=== PATIENT | male | born 1965 | race Caucasian/White ===

== ENCOUNTER 2018-04-11 16:57 | Observation (INO) | payer OTHER ==
[~2018-04-11] VITALS: Ht 188 cm; Wt 198.2 kg
[~2018-04-11 16:57] MED LIST: ALLOPURINOL300 MG PO; AMLODIPINE BESYL5 MG PO; ASPIR 8181 MG PO; FOLIC ACID1 MG PO; ISOSORBIDE MONO60 MG PO; LEVOTHYROXINE300 MCG PO; METOPROLOL SUCC25 MG PO; OMEPRAZOLE20 MG PO; VITAMIN D1000 UNI1 PO
[2018-04-11] MEDS ORDERED: ESOMEPRAZOLE MA40 MG PO (19:57)
[2018-04-11] MEDS ORDERED: METFORMIN HCL500 M1 PO (19:57)
[2018-04-11] MEDS ORDERED: LOSARTAN-HCTZ1 EAC1 PO (19:58)
[2018-04-11] MEDS ORDERED: LIOTHYRONINE SO5 MCG PO (19:59)
--- NOTE | 2018-04-11 21:57 | EKG ---
[facility] [address] [facility] [place] [address] Signed Sinus tachycardia Otherwise normal ECG No previous ECGs available Confirmed by SOURAV LYLE MD ([id number]) on 04/11/2018 9:57:15 PM Electronically Signed By: SOURAV LYLE MD 04/11/18 2157 PATIENT NAME: SUZANNE CAMPBELL Electrocardiogram DATE OF : 61 PHYSICIAN: SOURAV LYLE MD REPORT #: [id number] REPORT IS CONFIDENTIAL AND NOT TO BE RELEASED WITHOUT AUTHORIZATION
--- NOTE | 2018-04-12 00:56 | NUR ---
REPORT RECEIVED FROM SAPNA FOX. PT ARRIVED TO ROOM 129 VIA STRETCHER AT 2350. PT ABLE TO AMBULATE TO BED. ALERT/ORIENTED, DENIES PAIN. LUNGS CLEAR, RA. HR REGULAR. BOWEL TONES ACTIVE, ABDOMEN IS OBESE, SOFT, AND NON-TENDER. DENIES NAUSEA. SKIN APPEARS GROSSLY INTACT. PT REPORTS NUMBNESS IN BILATERAL HANDS AT BASELINE. IV SITES PATENT, IVF INFUSING WNL. PT UP TO BATHROOM WITH SBA TO VOID AND THEN RETURNED TO BED. R.T. NOW IN ROOM TO PLACE PT ON CPAP. PT HAS CALL LIGHT WITHIN REACH.
--- NOTE | 2018-04-12 02:05 | NUR ---
PT CALLED AND NEEDED TO USE BATHROOM. UP WITH SBA TO VOID AND THEN RETURNED TO BED. NOTICED ODOR OF YEAST, CHECKED UNDER PANNUS, SKIN APPEARS INTACT. USED BARRIER WIPES TO CLEAN FOLD BETWEEN GROIN AND LEGS. IT APPEARS THAT WHEN PT HAD DIARRHEA EARLIER IN THE DAY, THAT HE DID NOT GET CLEANED WELL. SKIN IN FOLDS APPEARS RED, NO OBVIOUS YEAST NOTED AT THIS TIME. PT NOW RESTING IN BED WITH CPAP ON. DENIES FURTHER REQUESTS AT THIS TIME, CALL LIGHT IS WITHIN REACH.
--- NOTE | 2018-04-12 02:05 | NUR ---
PT CALLED AND NEEDED TO USE BATHROOM. UP WITH SBA TO VOID AND THEN RETURNED TO BED. NOTICED ODOR OF YEAST, CHECKED UNDER PANNUS, SKIN APPEARS INTACT. USED BARRIER WIPES TO CLEAN FOLD BETWEEN GROIN AND LEGS, WIPED AWAY BROWN COLORED EXUDATE, FOLDS APPEAR RED, NO OBVIOUS YEAST NOTED AT THIS TIME. PT NOW RESTING WITH CPAP ON. DENIES FURTHER REQUESTS AT THIS TIME, CALL LIGHT IS WITHIN REACH.
--- NOTE | 2018-04-12 03:21 | NUR ---
PT CALLED AND NEEDED TO USE BATHROOM, UP WITH SBA, VOIDED AND THEN RETURNED TO BED. CPAP IN PLACE. CALL LIGHT WITHIN REACH. NO FURTHER REQUESTS AT THIS TIME.
--- NOTE | 2018-04-12 04:13 | NUR ---
ASSESSMENT COMPLETED. NO CHANGES FROM PREVIOUS ASSESSMENT. PT RESTING WITH CPAP IN PLACE. NO REQUESTS AT THIS TIME.
--- NOTE | 2018-04-12 05:01 | NUR ---
PT CALLED AND NEEDED TO USE BATHROOM, UP WITH SBA TO BATHROOM TO VOID AND THEN RETURNED TO BED. UPON RETURNING TO BED, PT STATES "MY STOMACH FEELS FUNNY." PROVIDED PT WITH EMESIS BAG AND HE STARTED TO RETCH. NO EMESIS PRODUCED, PRN ZOFRAN ADMINSTERED. PT STATES HE IS FEELING BETTER. LEAVING CPAP OFF AT THIS TIME FOR SAFETY. PT RESTING IN BED, DENIES FURTHER REQUESTS.
--- NOTE | 2018-04-12 06:33 | NUR ---
PT UP TO BATHROOM TO VOID AT THIS TIME AND THEN RETURNED TO BED. CALL LIGHT WITHIN REACH.
--- NOTE | 2018-04-12 07:45 | NUR ---
REPORT RC'D FROM CONVEYOR SYSTEM OPERATOR. PT ASSISTED FROM BED TO RESTROOM, NO BM, PT STEADY ON FEET. [facility] FSBS OBTAINED, 151. FLAGLY TO BE GIVEN. LR RUNNING @200 ML/HR IN RAC. 18G RW FLUSHED WITH 10ML NS, SITE WNL. PT RESTING COMFORTABLY IN CHAIR, DENIES PAIN. PT STATES HE HAS MILD NAUSEA, ZOFRAN GIVEN AT 0458, WILL CONTINUE TO MONITOR. PT REMAINS AFEBILE.
[2018-04-12] MEDS ORDERED: VITAMIN D250000 UNIT PO (09:17)
--- NOTE | 2018-04-12 09:24 | NUR ---
PATIENT UP TO BATHROOM TO HAVE A STOOL. STOOL SAMPLE OBTAINED BUT IT WAS A FORMED STOOL. DR. LYLE UPDATED - THAT STOOL NOT BEING SENT FOR LAB WORK SINCE IT WAS FORMED. WILL SEND ANOTHER STOOL IF PATIENT DOES IN FACT START HAVING LIQUID STOOLS.
[2018-04-12] MEDS ORDERED: ALLOPURINOL100 MG PO (09:31)
--- NOTE | 2018-04-12 09:46 | NUR ---
Home Medications verified using [facility] pharmacy records, patient's home med list and patient interview
--- NOTE | 2018-04-12 10:15 | NUR ---
PT SALINE LOCKED AND IV SITES COVERED. VITALS OBTAINED AND WNL. PT SBA AND AMBULATED TO SHOWER ROOM, TOLERATED WELL. ASSISTED WITH GROIN AND FOLD CLEANSING. PT AMBULATED BACK TO ROOM AND ASSISTED BACK TO BED, TOELRATED WELL. GROIN AND FOLDS DRIED AND NYSTATIN POWDER APPLIED. EDUCATION ON SKIN HYGIENE PROVIDED, PT VERBALIZED UNDERSTANDING. VITALS OBTAINED, LICENSED SALES ASSISTANT PLACED, BED LOWERED, AND CALL LIGHT WITHIN REACH.
--- NOTE | 2018-04-12 11:55 | NUR ---
DR. LYLE AT BEDSIDE TO ASSESS PT AND UPDATE PLAN OF CARE.
--- NOTE | 2018-04-12 12:15 | NUR ---
IV FLUIDS TITRATED FROM 200 ML/HR TO 75 ML/HR, PER ORDER. PT TO TRANSFER TO MEDICAL FLOOR.
--- NOTE | 2018-04-12 13:00 | NUR ---
PT ARRIVED TO ROOM 113 FROM CCU ROOM 129. PT ALERT AND ORIENTED REPORT FROM ZULEYMA STUDENT RN WITH [facility]. PT TRANSFERED TO BED THAT IS ABLETO EXTEND TO ACCOMADATE HIS HIGHTH. ALSO GOLD RECLINER BROUGHT INTO ROOM. V/S STABLE. NO COMPLAINTS OR REQUESTS. PT'S MOTHER WITH HIM, SHE IS NOW GOING OUT TO CAR TO RETRIEVE HOME CPAP MACHINE FOR PT TO USE SCOTTIE
--- NOTE | 2018-04-12 13:57 | NUR ---
PT RESTING IN BED, SAPNA FRANCOIS IN CHECKING HIS BS. HE IS ALERT, ORIENTED AND BEING VISITED BY HIS MOTHER. PT MENTIONED THAT HE THOUGHT HE WAS DOING MUCH BETTER THAN THURSDAY. I EXTENDED A BLESSING, WILL FOLLOW NEEDEDC
--- NOTE | 2018-04-12 14:15 | NUR ---
RECIEVED REPORT FROM SAPNA CALDERA. PT WAS SLEEPING, BREATHING EVEN AND UNLABORED.
--- NOTE | 2018-04-12 14:46 | NUR ---
VITALS TAKEN GIVEN TO NURSE WERNER
--- NOTE | 2018-04-12 15:21 | NUR ---
PUMP ALARMING, INFUSION AND FLUSH COMPLETE. IV FLUIDS RESTARTED AT 75ML/HR. PT WATCHING TV. WATER REFILLED. BED RAILS UP. CALL LIGHT WITHIN REACH.
--- NOTE | 2018-04-12 15:58 | NUR ---
HELPED PT TO THE BR. EMPTYED HAT.
--- NOTE | 2018-04-12 15:58 | NUR ---
REPORT TO CARROL ALEJO AT THIS TIME
--- NOTE | 2018-04-12 18:57 | NUR ---
PT CALL LIGHT ON. THIS RN TO BEDSIDE. PT REQUESTS ASSISTANCE UP TO RESTROOM. PT ASSISTED TO RESTROOM, SBA. PT VOIDS WITHOUT ISSUE. PT BACK TO BED. BED RAILS UP. CALL LIGHT WITHIN REACH.
--- NOTE | 2018-04-12 19:15 | NUR ---
IN ROOM FOR REPORT, PT IS AWAKE IN BED WITH CPAP ON. PT DENIES NEEDS AT THIS TIME. CALL LIGHT IS WITHIN REACH.
--- NOTE | 2018-04-12 20:50 | NUR ---
IN ROOM TO ASSESS PT. HE DENIES PAIN AT THIS TIME. HE HAS CHRONIC TINGLING IN BOTH HANDS BILAT BASELINE. HE HAS CPAP ON. EVENING MEDICATIONS WERE GIVEN AND PT DENIES FURTHER NEEDS.
--- NOTE | 2018-04-12 23:44 | NUR ---
IN ROOM TO ADMINISTER ABX. PT WOKE AND IS BACK TO SLEEP. RESPIRATIONS ARE EVEN AND NONLABORED WITH CPAP ON. CALL LIGHT IS WITHIN REACH.
--- NOTE | 2018-04-13 01:33 | NUR ---
PT IS RESTING WITH EYES CLOSED, RESPIRATIONS ARE EVEN AND NONLABORED ON CPAP. CALL LIGHT IS WITHIN REACH.
--- NOTE | 2018-04-13 03:49 | NUR ---
HELPED PT TO THE RESTROOM AND NOTED SOME SMEARS OF STOOL AND RED IF THE PT BLED A LITTLE. HAD PT TRY TO SIT ON TOILET AND SEE IF HE COULD GIVE A STOOL SAMPLE AND HE WAS UNABLE TO. WIPING HIS RECTAL AREA THE WIPE WAS A LITTLE BROWN FROM STOOL BUT NO BLOOD NOTED. HIS LEGS WERE INSPECTED AND NO OPEN AREAS OF SKIN WERE SEEN WELL NO BLOOD DRIPING FROM IV SITES. INSPECTION OF HIS SCROTAL AREA THE SKIN JUST APPEARED RED IN THE FOLD BUT NO OPEN AREAS WERE FOUND. WILL CONTINUE TO MONITOR.
--- NOTE | 2018-04-13 04:25 | NUR ---
1PA STANDBY TO THE BATHROOM AND BACK TO BED. CHANGED SOLIED DRAW SHEET AND SOCKS. CALL LIGHT WITHIN REACH.
--- NOTE | 2018-04-13 04:50 | NUR ---
HELPED PT TO THE RESTROOM AND HE HAD ANOTHER SMALL SPOT OF BLOOD ON THR DRAW SHEET. AFTER INSPECTING FURTHER WE MAY HAVE FOUND IT IS COMING FROM THE FAR UNDERSIDE OF HIS SCROTUM NEAR THE ANUS. AFTER WIPING THAT AREA THERE WAS A A SMALL SMEAR OF BLOOD. A SMALL STOOL SAMPLE WAS OBTAINED AND SENT TO LAB.
--- NOTE | 2018-04-13 06:04 | NUR ---
IN ROOM TO ADMINISTER THYROID MEDICINE AND HELPED PT TO THE RESTROOM. HE HAD A BM, NO BLOOD VISUALIZED. PT IS BACK IN BED AND DENIES NEEDS.
--- NOTE | 2018-04-13 07:29 | NUR ---
PT RESTING IN BED ALERT, FOR BEDSIDE REPORT. HE REQUESTS TO AMBUALTE TO BATHROOM. PT ASSISTED SBA TO BATHROOM TO VOID, PT HAS STEADY GAIT. NO OTHER CONCERNS.
--- NOTE | 2018-04-13 10:19 | NUR ---
PATIENT UP TO SHOWER AFTER EATING BREAKFAST. ORAL CARE DONE. LINENS CHANGED. FRESH ICE WATER GIVEN. CALL BUTTON IN REACH. PATIENT SITTING STRAIGHT UP IN BED WATCHING TV. NO OTHER NEEDS AT THIS TIME.
[2018-04-13] MEDS ORDERED: CIPROFLOXACIN500 MG PO (11:04)
[2018-04-13] MEDS ORDERED: METRONIDAZOLE500 MG PO (11:05)
[2018-04-13] MEDS ORDERED: NYSTOP60 GM TOP (11:14)
--- NOTE | 2018-04-13 11:55 | NUR ---
PT EDUCAITON PROVIDED ON MEDICATIONS NEXT DOSES AND SIDE EFFECTS. DISCUSSED SIGNS AND SYMPTOMS TO SEEK MEDICAL ATTENTION. RN DISCUSSED FOLLOW UP APPOINTMENT. I.V SITES REMOVED X2 WNL TIP INTACT. V/S STABLE
== END 2018-04-13 11:45 | disposition home or self-care (01) ==
LOC: ED 16:57 → MS 16:58 → CCU 16:58 → MS 04-12 13:00
PROVIDERS: ADMIT Internal Medicine
DX: A09 Infectious gastroenteritis and colitis, unspecified (principal); I10 Essential (primary) hypertension; G47.33 Obstructive sleep apnea (adult) (pediatric); K21.9 Gastro-esophageal reflux disease without esophagitis; E11.9 Type 2 diabetes mellitus without complications; E03.9 Hypothyroidism, unspecified; E79.0 Hyperuricemia without signs of inflammatory arthritis and tophaceous disease; E66.01 Morbid (severe) obesity due to excess calories; R00.0 Tachycardia, unspecified; K92.1 Melena; B37.2 Candidiasis of skin and nail; Z88.8 Allergy status to other drugs, medicaments and biological substances; Z68.43 Body mass index [BMI] 50.0-59.9, adult; Z79.84 Long term (current) use of oral hypoglycemic drugs; Z79.82 Long term (current) use of aspirin; Z79.899 Other long term (current) drug therapy
CPT/HCPCS: 36415; 71046; 74177; 80053; 81001; 83605; 85025; 87040; 87045; 87046; 87177; 87205; 87209; 87493; 93005; 93010; 94660; 94760; 96361; 96365; 96366; 96367; 96375; 99285; G0378; J0692; J0744; J1815; J2405; J7030; J7120; Q9967

== ENCOUNTER 2018-05-24 10:23 | Emergency (ER) | payer OTHER ==
[~2018-05-24] VITALS: Ht 193 cm; Wt 201.1 kg
[~2018-05-24 10:23] MED LIST changes: +ALLOPURINOL100 MG PO; +CIPROFLOXACIN500 MG PO; +ESOMEPRAZOLE MA40 MG PO; +LIOTHYRONINE SO5 MCG PO; +LOSARTAN-HCTZ1 EAC1 PO; +METFORMIN HCL500 M1 PO; +METRONIDAZOLE500 MG PO; +NYSTOP60 GM TOP; +VITAMIN D250000 UNIT PO
== END 2018-05-24 12:40 | disposition home or self-care (01) ==
LOC: ED 10:23
DX: N50.89 Other specified disorders of the male genital organs (principal); K40.90 Unilateral inguinal hernia, without obstruction or gangrene, not specified as recurrent; E11.9 Type 2 diabetes mellitus without complications; I10 Essential (primary) hypertension; Z87.891 Personal history of nicotine dependence; Z88.8 Allergy status to other drugs, medicaments and biological substances; Z79.82 Long term (current) use of aspirin; Z79.899 Other long term (current) drug therapy; Z79.84 Long term (current) use of oral hypoglycemic drugs
CPT/HCPCS: 76870; 80048; 85025; 99284

== ENCOUNTER 2020-12-25 17:59 | Emergency (ER) | payer OTHER ==
[~2020-12-25] VITALS: Ht 190.5 cm; Wt 173.3 kg
== END 2020-12-25 18:54 | disposition home or self-care (01) ==
LOC: ED 17:59
DX: S20.211A Contusion of right front wall of thorax, initial encounter (principal); W00.0XXA Fall on same level due to ice and snow, initial encounter; E11.9 Type 2 diabetes mellitus without complications; I10 Essential (primary) hypertension; G47.30 Sleep apnea, unspecified; Z87.891 Personal history of nicotine dependence; Z88.8 Allergy status to other drugs, medicaments and biological substances; Z79.899 Other long term (current) drug therapy; Z79.82 Long term (current) use of aspirin; Z79.84 Long term (current) use of oral hypoglycemic drugs
CPT/HCPCS: 71101; 99283-25

== ENCOUNTER 2021-10-23 06:30 | Day surgery (SDC) | payer OTHER ==
[~2021-10-23] VITALS: Ht 190.5 cm; Wt 165.0 kg
[~2021-10-23 06:30] MED LIST changes: +JARDIANCE10 MG PO; +TRULICITY1.5 MG/0.5 SQ
--- NOTE | 2021-10-23 07:19 | NUR ---
ASSISTED PATIENT WITH WIPING DOWN BACK, WHEN PATIENT TURNED NOTED BLOOD ON CHAIR THAT HAD SOAKED THROUGH SHORTS. PATIENT VERBALIZED HE HAD A CYSTO PROCEDURE DONE IN [facility] AND HAS HAD BLEEDING EVER SINCE. UPON VISUALING THE PATIENT APPEARED TO HAVE CYST ON TESTICLES AND VERY FIRM. DR. GALLEGO NOTIFIED AND ELBERT JJ
--- NOTE | 2021-10-23 07:52 | NUR ---
MECHANICAL PRODUCT ENGINEER WANTED REPEAT EKG AND DONE BY RT
[2021-10-23] MEDS ORDERED: HYDROCODON-ACE1 EA10 PO (08:58)
--- NOTE | 2021-10-23 09:00 | NUR ---
10/23/21 0900 Sheets,Rebecca 0854 PT ARRIVED TO PACU ON RA AND PT WAKES EASILY AND DENIES PAIN AND NUASEA. PT REPORTS NUMBNESS IN THIRD DIGET, BLOCK EDUCATION GIVEN. VSS.
[2021-10-23] MEDS ORDERED: CEPHALEXIN500 M1 PO (13:31)
--- NOTE | 2021-10-23 14:14 | NUR ---
pt returned due to dressing fell off. he called dr ca and was to come and have it redressed. bacitracin ointment to finger sutures adaptic applied and guaze then tube guaze on by as rn. instructed pt to keep clean and dry. go home and put hand up on pillow.
--- NOTE | 2021-10-23 19:43 | EKG ---
[facility] [address] [facility] [place], [place] [address] Signed Normal sinus rhythm Normal ECG When compared with ECG of 11-APR-2018 17:59, No significant change was found Confirmed by NITIN MEDELLIN MD ([id number]) on 10/23/2021 7:43:12 PM Electronically Signed By: NITIN MEDELLIN MD 10/23/211942 PATIENT NAME: SUZANNE CAMPBELL Electrocardiogram DATE OF : 61 PHYSICIAN: NITIN MEDELLIN MD REPORT #: [id number] REPORT IS CONFIDENTIAL AND NOT TO BE RELEASED WITHOUT AUTHORIZATION
--- NOTE | 2021-10-28 09:10 | OR ---
[facility] [address] [place], [place] [address] Signed DATE OF OPERATION: 10/23/2021 SURGEON: Lubna Mohan MD PREOPERATIVE DIAGNOSIS: Mucous cyst, left long finger. POSTOPERATIVE DIAGNOSIS: Mucous cyst, left long finger. PROCEDURE PERFORMED: Excision of the cyst, left long finger. RAG WASHER: None. ANESTHESIA: Digital block. TOURNIQUET TIME: 10 minutes with a finger tourniquet. BRIEF HISTORY: Ed is a 55-year-old gentleman with pain and occasional draining from the DIP joint of his left long finger. This was bothersome and caused him a lot of problems. Risks and benefits of excision of the cyst and the underlying bone spur were discussed with him. He elected to proceed. DESCRIPTION OF PROCEDURE: Once consent was obtained, he was taken to the operating room. After adequate anesthesia, he was left on the day surgery bed and hand table was brought in. The hand was prepped and draped in a standard sterile fashion after the digital block at that time to set up. A finger tip tourniquet using a glove finger was then rolled proximally on the digit. The mucous cyst was then marked out and an elliptical incision was made around it, excising the drainage tract. The underlying cyst was then removed under loupe magnification down to the extensor tendon. The extensor tendon was split slightly. The underlying bone spur was removed using a combination of small rongeur and curette. The wound was then copiously irrigated. No further debridement was noted to be necessary. The wound was then closed using 3-0 nylon and dressed with bacitracin Adaptic and gauze. Electronically Signed By: LUBNA MOHAN MD 10/28/21 0910 PATIENT NAME: ED CAMPBELL OPERATIVE REPORT DATE OF : 61 REPORT #: [id number] PHYSICIAN: LUBNA MOHAN MD PCP: ALEJANDRINA TOVAR PA-C REPORT IS CONFIDENTIAL AND NOT TO BE RELEASED WITHOUT AUTHORIZATION [address] [place], [place] [address] Signed He tolerated the procedure well. All sponge, needle, and instrument counts were correct. Lubna Mohan MD BA/HALLIEL /[id number] Copies: ~ Electronically Signed By: LUBNA MOHAN MD 10/28/21 0910 PATIENT NAME: ED CAMPBELL OPERATIVE REPORT DATE OF : 61 REPORT #: [id number] PHYSICIAN: LUBNA MOHAN MD PCP: ALEJANDRINA TOVAR PA-C REPORT IS CONFIDENTIAL AND NOT TO BE RELEASED WITHOUT AUTHORIZATION
== END 2021-10-23 09:34 | disposition home or self-care (01) ==
LOC: DS 06:30
PROVIDERS: ATTEND Specialist
PROC: 0JBK0ZZ Excision of Left Hand Subcutaneous Tissue and Fascia, Open Approach (ICD-10-PCS; principal; 2021-10-23 08:15)
DX: M71.342 Other bursal cyst, left hand (principal); G47.30 Sleep apnea, unspecified
CPT/HCPCS: 01830; 93005; 93010; J0690; J2001; J2250; J2704; J7121

== ENCOUNTER 2021-10-23 11:25 | Emergency (ER) | payer OTHER ==
[~2021-10-23] VITALS: Ht 190.5 cm; Wt 165.0 kg
[~2021-10-23 11:25] MED LIST changes: +HYDROCODON-ACE1 EA10 PO
[2021-10-23] MEDS ORDERED: CEPHALEXIN500 M1 PO (13:31)
== END 2021-10-23 13:37 | disposition home or self-care (01) ==
LOC: ED 11:25
DX: N49.2 Inflammatory disorders of scrotum (principal); E11.9 Type 2 diabetes mellitus without complications; I10 Essential (primary) hypertension; M10.9 Gout, unspecified; G47.30 Sleep apnea, unspecified; Z88.8 Allergy status to other drugs, medicaments and biological substances; Z79.899 Other long term (current) drug therapy; Z79.82 Long term (current) use of aspirin; Z79.84 Long term (current) use of oral hypoglycemic drugs
CPT/HCPCS: 99282

== ENCOUNTER 2021-12-05 10:35 | Emergency (ER) | payer OTHER ==
[~2021-12-05] VITALS: Ht 190.5 cm; Wt 165.1 kg
[~2021-12-05 10:35] MED LIST changes: +CEPHALEXIN500 M1 PO
[2021-12-05] MEDS ORDERED: CEPHALEXIN500 M1 PO (11:47)
== END 2021-12-05 11:54 | disposition home or self-care (01) ==
LOC: ED 10:35
DX: N49.2 Inflammatory disorders of scrotum (principal); I10 Essential (primary) hypertension; E11.9 Type 2 diabetes mellitus without complications; M10.9 Gout, unspecified; G47.30 Sleep apnea, unspecified; Z88.8 Allergy status to other drugs, medicaments and biological substances; Z79.82 Long term (current) use of aspirin; Z79.890 Hormone replacement therapy; Z79.899 Other long term (current) drug therapy; Z79.84 Long term (current) use of oral hypoglycemic drugs
CPT/HCPCS: 99283; A9270

== ENCOUNTER 2021-12-27 14:00 | Emergency (ER) | payer OTHER ==
[~2021-12-27] VITALS: Ht 190.5 cm; Wt 168.4 kg
--- OUTSIDE RECORDS SUMMARY | 2021-12-27 14:02 | XMS ---
PreManage Notification: SUZANNE CAMPBELL Security Roller Skate Repairer Events No recent Security Events currently on file CRITERIA MET - [facility] - 2 Visits in 30 Days CARE PROVIDERS ALEJANDRINA TOVAR Physician Grave Cleaner Current PHONE: [phone] Carlos Alberto has no Care Guidelines for this patient. Tim VISIT COUNT (12 MO.) 3 [facility] TOTAL 3 NOTE: Visits indicate total known visits. ED/UCC VISIT TRACKING (12 MO.) 12/27/2021 14:00 [facility] TYPE: Emergency COMPLAINT: - ABNORMAL ULTRASOUND 12/05/2021 10:37 [facility] [place] TYPE: Emergency COMPLAINT: - SCROTUM SWELLING DIAGNOSES: - Type 2 diabetes mellitus without complications - Hormone replacement therapy - Essential (primary) hypertension - computer terminal operator (current) use of oral hypoglycemic drugs - Inflammatory disorders of scrotum - Other buttermaker helper (current) drug therapy - Allergy status to other drugs, medicaments and biological substances - jail (current) use of aspirin - Left testicular pain - Sleep apnea, unspecified - Gout, unspecified 10/23/2021 11:27 [facility] [place] TYPE: Emergency COMPLAINT: - SKIN ISSUE DIAGNOSES: - Other residential (current) drug therapy - Sleep apnea, unspecified - jail (current) use of aspirin - computer terminal operator (current) use of oral hypoglycemic drugs - Essential (primary) hypertension - Gout, unspecified - Allergy status to other drugs, medicaments and biological substances - Type 2 diabetes mellitus without complications - Inflammatory disorders of scrotum INPATIENT VISIT TRACKING (12 MO.) No inpatient visits to display in this time frame [email or web address]
[2021-12-27] MEDS ORDERED: ATORVASTATIN CA20 MG PO (14:20)
[2021-12-27] MEDS ORDERED: DOXYCYCLINE HY100 MG PO (19:58)
== END 2021-12-27 20:15 | disposition home or self-care (01) ==
LOC: ED 14:00
DX: N50.89 Other specified disorders of the male genital organs (principal); E11.9 Type 2 diabetes mellitus without complications; I10 Essential (primary) hypertension; M10.9 Gout, unspecified; G47.30 Sleep apnea, unspecified; Z88.8 Allergy status to other drugs, medicaments and biological substances; Z79.82 Long term (current) use of aspirin; Z79.899 Other long term (current) drug therapy; Z79.84 Long term (current) use of oral hypoglycemic drugs
CPT/HCPCS: 36415; 72193; 80048; 85025; 99284-25

== ENCOUNTER 2022-01-19 09:05 | Emergency (ER) | payer OTHER ==
[~2022-01-19] VITALS: Ht 190.5 cm; Wt 168.3 kg
[~2022-01-19 09:05] MED LIST changes: +ATORVASTATIN CA20 MG PO; +DOXYCYCLINE HY100 MG PO
--- OUTSIDE RECORDS SUMMARY | 2022-01-19 09:08 | XMS ---
PreManage Notification: SUZANNE CAMPBELL Security Scrap Preparation Supervisor Events No recent Security Events currently on file CRITERIA MET - [facility] - 2 Visits in 30 Days CARE PROVIDERS ALEJANDRINA TOVAR Physician Senior System Operator Current PHONE: [phone] Carlos Alberto has no Care Guidelines for this patient. Tim VISIT COUNT (12 MO.) 4 [facility] TOTAL 4 NOTE: Visits indicate total known visits. ED/UCC VISIT TRACKING (12 MO.) 01/19/2022 09:05 [facility] [place] TYPE: Emergency COMPLAINT: - BLOOD SUGAR ISSUES 12/27/2021 14:00 [facility] [place] TYPE: Emergency COMPLAINT: - ABNORMAL ULTRASOUND DIAGNOSES: - Gout, unspecified - Other long term care social worker (current) drug therapy - skilled nursing (current) use of oral hypoglycemic drugs - Type 2 diabetes mellitus without complications - Essential (primary) hypertension - skilled nursing (current) use of aspirin - Allergy status to other drugs, medicaments and biological substances - Sleep apnea, unspecified - Other specified disorders of the male genital organs 12/05/2021 10:37 [facility] [place] TYPE: Emergency COMPLAINT: - SCROTUM SWELLING DIAGNOSES: - Type 2 diabetes mellitus without complications - Hormone replacement therapy - Essential (primary) hypertension - skilled nursing (current) use of oral hypoglycemic drugs - Inflammatory disorders of scrotum - Other care home (current) drug therapy - Allergy status to other drugs, medicaments and biological substances - skilled nursing (current) use of aspirin - Left testicular pain - Sleep apnea, unspecified - Gout, unspecified 10/23/2021 11:[address] [facility] [place] TYPE: Emergency COMPLAINT: - SKIN ISSUE DIAGNOSES: - Other long term care social worker (current) drug therapy - Sleep apnea, unspecified - computer terminal operator (current) use of aspirin - computer terminal operator (current) use of oral hypoglycemic drugs - Essential (primary) hypertension - Gout, unspecified - Allergy status to other drugs, medicaments and biological substances - Type 2 diabetes mellitus without complications - Inflammatory disorders of scrotum INPATIENT VISIT TRACKING (12 MO.) No inpatient visits to display in this time frame [email or web address]
== END 2022-01-19 09:30 | disposition home or self-care (01) ==
LOC: ED 09:05
DX: Z53.21 Procedure and treatment not carried out due to patient leaving prior to being seen by health care provider (principal)

== ENCOUNTER 2022-07-02 10:35 | Emergency (ER) | payer OTHER ==
[~2022-07-02] VITALS: Ht 190.5 cm; Wt 169.6 kg
[2022-07-02] MEDS ORDERED: LIDODERM1 EACH TOP (12:41)
== END 2022-07-02 12:53 | disposition home or self-care (01) ==
LOC: ED 10:35
DX: D17.30 Benign lipomatous neoplasm of skin and subcutaneous tissue of unspecified sites (principal); S22.32XD Fracture of one rib, left side, subsequent encounter for fracture with routine healing; I10 Essential (primary) hypertension; E11.9 Type 2 diabetes mellitus without complications; Z79.899 Other long term (current) drug therapy; Z79.82 Long term (current) use of aspirin; Z79.84 Long term (current) use of oral hypoglycemic drugs
CPT/HCPCS: 71250; 99285-25

== ENCOUNTER 2022-09-19 05:35 | Day surgery (SDC) | payer OTHER ==
[~2022-09-19] VITALS: Ht 190.5 cm; Wt 170.0 kg
[~2022-09-19 05:35] MED LIST changes: +FLOMAX0.4 MG PO; +LIDODERM1 EACH TOP
[2022-09-19] MEDS ORDERED: TAMSULOSIN HCL0.4 MG PO (06:03)
[2022-09-19] MEDS ORDERED: LOSARTAN POTASS50 MG PO (06:04)
--- NOTE | 2022-09-19 08:40 | NUR ---
09/19/22 0840 Sade Rausch 0878 PATIENT ARRIVES TO PACU AWAKE BUT DROWSY. RESP EVEN AND UNLABORED, ROOM AIR SATS >94%. DENIES PAIN OR NAUSEA. SLOW TO RESPOND BUT ANSWERS QUESTIONS APPROPRIATELY.
[2022-09-19] MEDS ORDERED: OXYCODON-ACETA1 EAC2 PO (08:47)
[2022-09-19] MEDS ORDERED: IBUPROFEN600 MG PO (08:47)
[2022-09-19] MEDS ORDERED: ACETAMINOPHEN500 MG PO (08:48)
--- NOTE | 2022-09-19 09:53 | NUR ---
PT ARRIVED TO DAY SURGERY VIA STRETCH. PT DROWSY AND RESPONDS TO STIMULI. PT HAS STERI STRIPS AND ACTICOAT ON LEFT AXILLARY REGION WITH SMALL AMOUNT RED DRAINAGE. PT REPORTS PAIN 3/10 IN LEFT AXILLARY REGION. PT REPORTS NO NAUSEA. PT HAS WATER AT BEDSIDE AND CALL LIGHT WITHIN REACH.
--- NOTE | 2022-09-19 10:40 | NUR ---
PT AWAKE AND ORIENTED UPON ARRIVAL TO ROOM. PT COMPLAINING OF LEFT AXILLARY PAIN AT INCISION SITE. RATES IT 5/10. PT RESTING COMFORTABLY AT BEDSIDE WITH WATER AND PUDDING. CALL LIGHT WITHIN REACH.
--- NOTE | 2022-09-19 11:52 | NUR ---
LE 1130: PT REPORTS IMPROVEMENT IN PAIN. HE IS ASSISTED UP OOB WITH STANDBY ASSIST THE RESTROOM, WHERE IS ABLE TO VOID 200MLS OF DARK YELLOW URINE. HE AMBULATES BACK TO HIS BED WITHOUT ISSUES. HE WOULD LIKE TO GO HOME AT THIS TIME. HE IS EDUCATED ON HOW TO BEST DRESS HIMSELF AND TO OPEN HIS CURTAIN WHEN READY.
--- NOTE | 2022-09-19 11:54 | NUR ---
LE 1145: PT IS GIVEN VERBAL AND WRITTEN DC INSTRUCTIONS. PT HAS NO QUESTIONS AT THIS TIME. HE IS TAKEN TO PERSONAL VEHICLE VIA WC, WHERE IS HE ABLE TO TRANSFER HIMSELF SAFELY WITHOUT ISSUES.
--- NOTE | 2022-09-21 12:36 | OR ---
[facility] [address] [place], [place] [address] Signed DATE OF OPERATION: 09/19/2022 SURGEON: Dallas Mendoza MD PREOPERATIVE DIAGNOSES: 1. Left axillary mass. 2. Morbid obesity, 380 pounds. POSTOPERATIVE DIAGNOSES: Deep left axillary mass consistent with well-circumscribed lipoma, possible central lymph node with fatty replacement. PROCEDURE: Excision of deep left axillary mass. ANESTHESIA: General endotracheal, Teto Escudero CRNA. INDICATIONS: This morbidly obese, 380 pounds large white man is patient of Alejandrina Rios. He has been noted to have a relatively prominent left axillary mass. A CT scan was obtained, but given the patient's body habitus and so forth visualization of the axilla was really not forthcoming. Clinical examination shows a well-defined mass about 10 cm in size. It is unclear if this represents simply a lipoma or perhaps lymphadenopathy. It is uncomfortable for him from time to time and I have offered excision. The risks of bleeding, infection, need for additional treatment should malignancy be found, and so forth were all reviewed with him. He understands and wished to proceed. FINDINGS: The mass was well defined and was most consistent with a lipoma. In the central portion of the bulky mass more well defined, mass was also noted. This was transected. Once completely excised, and had a relatively well-formed capsule around it that may represent a fatty replaced lymph node. There is no sign of other abnormality. PROCEDURE IN DETAIL: The patient was brought to the operating room, given a general endotracheal anesthetic using a glide scope. Preoperative antibiotic of Ancef was given. Sequential compression device stockings used. The left axilla was clipped and prepared with a chlorhexidine solution and draped sterilely. The palpable mass was easily defined and a transverse incision made directly over it. Dissection was carried through the Electronically Signed By: DALLAS MENDOZA MD 09/21/22 1236 PATIENT NAME: SUZANNE CAMPBELL OPERATIVE REPORT DATE OF : 61 REPORT #: [id number] PHYSICIAN: DALLAS MENDOZA MD PCP: ALEJANDRINA RIOS PA-C REPORT IS CONFIDENTIAL AND NOT TO BE RELEASED WITHOUT AUTHORIZATION [facility] [address] [place], [place] [address] Signed subcutaneous tissue. Using blunt dissection, the well-defined mass could be further freed up. It was excised with blunt and electrocautery dissection. It measured approximately 10 to 12 cm in maximum dimension and once explanted the wound was packed with some gauze. The mass itself was firm and it seemed as though in addition to a probable lipoma, there may be a central lymph node. On that basis, it was bisected and indeed there was a well defined capsule with what appeared to be fatty replacement and it may well represent only a well-defined lipoma within the fatty tissue, though still the possibility of a lymph node with fatty replacement is noted. In any case, it did not appear to be a malignant neoplasm. The wound was irrigated and hemostasis assured with electrocautery as well as 2-0 Vicryl sutures as necessary. The wound was closed in layers with interrupted 2-0 Vicryl and running subcuticular 3-0 Vicryl for the skin. Steri-Strips were applied as was an Acticoat dressing. Blood loss was minimal. Complications none. The patient tolerated the procedure well, was transferred to the recovery room in good condition. Sponge, needle, and instrument counts were reported as correct x3. MD RASHMI Lazaro/HALLIEL /[id number] cc: SVETLANA Turner Copies: ~ Electronically Signed By: DALLAS MENDOZA MD 09/21/22 1236 PATIENT NAME: SUZANNE CAMPBELL OPERATIVE REPORT DATE OF : 61 REPORT #: [id number] PHYSICIAN: DALLAS MENDOZA MD PCP: ALEJANDRINA RIOS PA-C REPORT IS CONFIDENTIAL AND NOT TO BE RELEASED WITHOUT AUTHORIZATION
--- NOTE | 2022-09-23 14:57 | PATH ---
[facility] [address] [facility] [place] [address] Signed SPECIMEN(S): A AXILLARY SOFT TISSUE MASS LEFT SIDE SPECIMEN SOURCE: A. AXILLARY SOFT TISSUE MASS LEFT SIDE CLINICAL HISTORY: Mass of axillary region FINAL PATHOLOGIC DIAGNOSIS: Axillary soft tissue mass, left side: - Benign lymph node with prominent central bland adipose tissue (lipoplastic lymphadenopathy). - Negative for atypical features. COMMENT: As part of [facility] Quality Improvement Program, this case was reviewed by another member of our pathology staff. JVR:DS:tonja:C2NR MICROSCOPIC EXAMINATION: Histologic sections of all submitted blocks are examined by light microscopy. These findings, together with the gross examination, support the pathologic diagnosis. GROSS DESCRIPTION: The specimen, labeled "Ed Valentine, axillary soft tissue mass," is received in formalin and consists of a single fragment of yellow-pugh fibroadipose tissue measuring 8.5 x 7.7 x 4.4 cm. The specimen is serially sectioned and upon sectioning reveals a yellow-pugh fibroadipose mass measuring 5.0 x 3.5 x 2.0 cm. The soft tissue mass is about 80% adipose tissue. Director Of Online Merchandising sections are submitted in cassette A1A5. HH (under the direct supervision of a pathologist) The Gross Description was prepared using a voice recognition system. The report was reviewed for accuracy; however, sound-alike word errors, addition and/or deletions may occur. If there is any question about this report, please contact Client Services. PERFORMING LABORATORY: The technical component was performed by [facility], [address] [place] [id number] (CLIA# [id number]). Professional interpretation was PATIENT NAME: ED VALENTINE PATHOLOGY DATE OF : 61 REPORT #: [id number] PHYSICIAN: GAETANO PATHOLOGY PCP: ALEJANDRINA TOVAR PA-C REPORT IS CONFIDENTIAL AND NOT TO BE RELEASED WITHOUT AUTHORIZATION [facility] [address] [facility] [place] [address] Signed performed by [facility] [address] [address] (CLIA#: [id number]). Diagnostician: Tunde Iglesias MD Pathologist Electronically Signed 09/23/2022 Copies: ~ PATIENT NAME: ED VALENTINE PATHOLOGY DATE OF : 61 REPORT #: [id number] PHYSICIAN: GAETANO SANDERS PCP: ALEJANDRINA TOVAR PA-C REPORT IS CONFIDENTIAL AND NOT TO BE RELEASED WITHOUT AUTHORIZATION
== END 2022-09-19 11:50 | disposition home or self-care (01) ==
LOC: DS 05:35
PROVIDERS: ATTEND Surgery
PROC: 07B60ZZ Excision of Left Axillary Lymphatic, Open Approach (ICD-10-PCS; principal; 2022-09-19 07:30)
DX: R59.0 Localized enlarged lymph nodes (principal); E66.01 Morbid (severe) obesity due to excess calories; I10 Essential (primary) hypertension; E11.9 Type 2 diabetes mellitus without complications; G47.33 Obstructive sleep apnea (adult) (pediatric); M62.08 Separation of muscle (nontraumatic), other site; L73.2 Hidradenitis suppurativa
CPT/HCPCS: J0330; J0690; J1100; J1644; J1885; J2001; J2405; J2704; J3010; J7121

== ENCOUNTER 2022-12-24 10:48 | Emergency (ER) | payer OTHER ==
[~2022-12-24] VITALS: Ht 190.5 cm; Wt 180.1 kg
[~2022-12-24 10:48] MED LIST changes: +ACETAMINOPHEN500 MG PO; +IBUPROFEN600 MG PO; +LOSARTAN POTASS50 MG PO; +OXYCODON-ACETA1 EAC2 PO; +PROSCAR5 MG PO; +TAMSULOSIN HCL0.4 MG PO
--- OUTSIDE RECORDS SUMMARY | 2022-12-24 10:52 | XMS ---
PreManage Notification: SUZANNE CAMPBELL Security Vp Communications Events No recent Security Events currently on file CRITERIA MET - SANDRAP CARE PROVIDERS ALEJANDRINA TOVAR Physician Smoke Eater Current PHONE: Unknown Carlos Alberto has no Care Guidelines for this patient. ECon VISIT COUNT (12 MO.) 5 ANGELINA Nava TOTAL 5 NOTE: Visits indicate total known visits. 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 of unspecified sites - long term care phlebotomist (current) use of oral hypoglycemic drugs - Essential (primary) hypertension - Fracture of one rib, left side, subsequent encounter for fracture with routine healing - Chest pain, unspecified - Other mcc (current) drug therapy - Type 2 diabetes mellitus without complications 04/23/2022 20:49 ANGELINA [facility] [place] TYPE: Emergency COMPLAINT: - BLOOD IN URINE DIAGNOSES: - Other mcc (current) drug therapy - Type 2 diabetes mellitus without complications - Allergy status to other drugs, medicaments and biological substances - Hematuria, unspecified - Essential (primary) hypertension 01/19/2022 09:05 ANGELINA [facility] [place] TYPE: Emergency COMPLAINT: - BLOOD SUGAR ISSUES DIAGNOSES: - Procedure and treatment not carried out due to patient leaving prior to being seen by health care provider 12/27/2021 14:00 ANGELINA [facility] [place] TYPE: Emergency COMPLAINT: - ABNORMAL ULTRASOUND DIAGNOSES: - Type 2 diabetes mellitus without complications - 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
== END 2022-12-24 12:02 | disposition home or self-care (01) ==
LOC: ED 10:48
DX: S80.212A Abrasion, left knee, initial encounter (principal); S50.312A Abrasion of left elbow, initial encounter; I10 Essential (primary) hypertension; E11.9 Type 2 diabetes mellitus without complications; M10.9 Gout, unspecified; G47.30 Sleep apnea, unspecified; Z88.8 Allergy status to other drugs, medicaments and biological substances; Z79.899 Other long term (current) drug therapy; Z79.82 Long term (current) use of aspirin; Z79.84 Long term (current) use of oral hypoglycemic drugs; W01.0XXA Fall on same level from slipping, tripping and stumbling without subsequent striking against object, initial encounter; Y92.481 Parking lot as the place of occurrence of the external cause
CPT/HCPCS: 99283; A9270

== ENCOUNTER 2023-01-26 07:40 | Day surgery (SDC) | payer OTHER ==
[~2023-01-26] VITALS: Ht 190.5 cm; Wt 178.6 kg
--- NOTE | 2023-01-26 10:13 | NUR ---
1003-PATIENT'S BLOOD SUGAR IS 335.
--- NOTE | 2023-01-26 12:03 | NUR ---
01/26/23 1203 Yadira Bowman 1145 PT ARRIVED IN PACU SLEEPY. BLOOD SUGAR 307. ANESTHESIA AWARE WITH NO NEW ORDERS. 1150 C/O URGE TO VOID. URINAL IN PLACE. 1200 CPAP PLACED ON PT. RESTING. REU.
[2023-01-26] MEDS ORDERED: LEVOFLOXACIN750 MG PO (15:01)
[2023-01-26] MEDS ORDERED: OXYCODONE HCL5 MG PO (15:04)
[2023-01-26] MEDS ORDERED: PYRIDIUM200 MG PO (15:04)
--- NOTE | 2023-01-26 16:29 | NUR ---
1215: PT ARRIVES TO UNIT VIA STRETCHER FROM PACU. DROWSY BUT RESPONDS AND LISTENS TO COMMANDS. VSS, RESP EVEN AND UNLABORED. CPAP AND SCDS IN PLACE. PT REPORTS BURNING AT THE SURGICAL SITE AND REPORTS THE URGE TO VOID. TOO DROWSY TO AMBULATE TO BR AT THIS TIME. DANGLED AT THE BEDSIDE, TERESA WELL. STANDS AT THE BEDSIDE WITH TWO PERSON ASSIST AND UNABLE TO VOID IN URINAL AT THIS TIME. TRANSFERRED BACK INTO STRETCHER. CPAP BACK IN PLACE AND PT DROWSES INTERMITTENTLY . ICE WATER AND CRACKERS PROVIDED. MOTHER AND FATHER AT THE BEDSIDE. POC DISCUSSED. NO NEEDS VOICED
--- NOTE | 2023-01-26 16:44 | NUR ---
[id number]: PT UP TO BATHROOM WITH 2 RN ASSIST, HAS UNSTEADY GAIT BUT DENIES DIZZINESS OR NAUSEA WITH BEING UPRIGHT. PT DEMANDS THAT RN EXIT BATHROOM, ENCOURAGED TO HOLD ON TO SAFETY RAIL AND USE CALL LIGHT IF NEEDED. THIS RN WAITS AT BATHROOM DOOR. PT ABLE TO VOID 100 MLS RED URINE AND BACK TO STRETCHER. PT STATES BURNING SENSATIONS AND OFFERED PYRIDIUM. PT BLADDER SCANNED OF 0 MLS IN BLADDER PER DR. HERNANDEZ VERBAL ORDERS. 1340: PT UP TO BATHROOM WITH RN ASSIST, UNABLE TO VOID. SMALL AMOUNT OF BLOOD IN TOILET. BACK TO STRETCHER AND STATES BEING PAINFUL. PROVIDED CRACKERS AND PUDDING AND GIVEN PAIN RX; SEE EMAR. PT FAMILY AT BEDSIDE, CALL LIGHT WITHIN REACH. 1432: PT UP TO BATHROOM INDEPENDENTLY, ABLE TO VOID 150 MLS RED URINE WITH ONE SMALL CLOT PRESENT. BACK TO STRETCHER AND STATES PAIN IS TOLERABLE AND RATES 2/10. FAMILY REMAINS AT BEDSIDE. HARD COPY OF PRESCRIPTIONS GIVEN TO PT MOTHER WHO TAKES TO PHARMACY TO HAVE FILLED. PT MOTHER STATES HE LIVES ALONE AND SHE PLANS TO STAY WITH HIM PRIOR TO GOING HOME TO [facility]. 1514: PT DRESSES SELF WITH NO PROBLEMS. DC INSTRUCTIONS PRESENTED TO PT AND FAMILY, DC FROM DS TREATMENT ROOM VIA WC TO FAMILY WAITING AT HOSPITAL ENTRANCE TO HOME.
--- NOTE | 2023-01-27 18:30 | OR ---
[facility] [address] [place], [place] [address] Signed DATE OF OPERATION: 01/26/2023 SURGEON: Humphrey Hernandez MD PREOPERATIVE DIAGNOSES: 1. Bilobar benign prostatic hyperplasia with lower urinary tract symptoms. 2. Elevated bladder neck. POSTOPERATIVE DIAGNOSES: 1. Bilobar benign prostatic hyperplasia with lower urinary tract symptoms. 2. Elevated bladder neck. NAMES OF PROCEDURES: 1. UroLift procedure. 2. Diagnostic cystoscopy. ANESTHESIA: General endotracheal intubation. ESTIMATED BLOOD LOSS: Minimal. COMPLICATIONS: None. SPECIMENS: None. DRAINS: None. INDICATIONS FOR PROCEDURE: Mr. Valentine is a very pleasant 57-year-old gentleman with a past medical history significant for diabetes and hypertension along with obesity who presents today to undergo the UroLift procedure for his known weak force of stream and nocturia. He recently underwent diagnostic cystoscopy which did reveal the presence of lateral lobe hypertrophy with evidence of active bladder outlet obstruction. He is well-known to me for history of scrotal cellulitis/scrotal wall abscesses. He has not had any issues with these recently. He was reminded today of the risks of the UroLift procedure which do include gross hematuria as well as urinary urgency, frequency, and pelvic pain for at Electronically Signed By: HUMPHREY HERNANDEZ MD 01/27/23 1830 PATIENT NAME: SUZANNE VALENTINE OPERATIVE REPORT DATE OF : 61 REPORT #: [id number] PHYSICIAN: HUMPHREY HERNANDEZ MD PCP: ALEJANDRINA TOVAR PA-C REPORT IS CONFIDENTIAL AND NOT TO BE RELEASED WITHOUT AUTHORIZATION [facility] [address] [place], [place] [address] Signed least the next 2-3 weeks. He has verbalized understanding of these risk factors and has agreed to proceed. FINDINGS: 1. On cystoscopy, there was no evidence of any suspicious masses, lesions, or stones. Bilateral ureteral orifices are in their normal anatomic location and effluxing clear urine. 2. There is moderate lateral lobe hypertrophy noted with kissing lobes of the prostate. No significant median bar or median lobe was present. However, his bladder neck is elevated. There is approximately 3 cm from bladder neck to verumontanum. 3. Using the UroLift 2 system delivery device, I was able to place three implants in the right lobe of the prostate and two implants on the left for a total of five implants. DESCRIPTION OF PROCEDURE: After informed consent was obtained, the patient was taken back to the operating room. He was transferred from the [facility] to the operating room table, where general anesthesia was induced. He was placed in the dorsal lithotomy position. His genitalia prepped and draped in standard sterile fashion. A 20-Polish cystoscope was inserted into the urethral meatus guided by a visual obturator. Inspection of the prostatic urethra was notable for the obstruction present as a result of the enlarged lateral lobes. Please see above findings. The visual obturator was replaced with a UroLift 2 system delivery device. The first treatment site was the patient's left side approximately 1.5 cm distal to the bladder neck. UroLift system implantation steps were completed as indicated in product documentation. The capsular tap was successfully deployed, the urethral end piece was successfully affixed to the suture, and the suture was cut. The delivery device was then readvanced into the bladder and then removed from the sheath and the patient. The implant cartridge was removed from the delivery device and replaced with the scope seal and the assembled device was then reinserted. The implant location and opening affect was confirmed cystoscopically. The same steps of the procedure were then performed on the right side with a total of two additional implants on the right and one additional implant on the left. These were placed following the indicated implantation technique. A final cystoscopy was conducted at the end of the procedure. It was first performed to inspect the location and state of each implant and second to confirm the presence of a continuous anterior channel from the verumontanum to the bladder neck. This was confirmed even with irrigation flow turned off. The bladder was then filled with approximately 100 mL of irrigation fluid to assist the patient in a voiding trial after the procedure. All instruments removed and the procedure was then terminated. The patient tolerated the procedure well without complication. He will now be transferred to the postanesthesia care unit in stable condition. DISPOSITION: I discussed the details of today's procedure with the patient's mother and answered all Electronically Signed By: HUMPHREY HERNANDEZ MD 01/27/23 1830 PATIENT NAME: SUZANNE VALENTINE OPERATIVE REPORT DATE OF : 61 REPORT #: [id number] PHYSICIAN: HUMPHREY HERNANDEZ MD PCP: ALEJANDRINA TOVAR PA-C REPORT IS CONFIDENTIAL AND NOT TO BE RELEASED WITHOUT AUTHORIZATION [facility] [address] [place] [address] Signed of her questions. He must void on his own prior to being discharged home today. He will be sent home with Levaquin 750 one tablet p.o. daily for a total of 7 days along with oxycodone 5 mg one tablet p.o. q.6 hours p.r.n. pain dispense #10. He was also given a prescription for Pyridium for dysuria, 200 mg p.o. t.i.d. p.r.n. dysuria #21. He has been scheduled to return to my clinic on February 09 with a PVR for his first postoperative evaluation. MD ELINA Villagomez/OSVALDO /[id number] Copies: ~ Electronically Signed By: HUMPHREY HERNANDEZ MD 01/27/23 1830 PATIENT NAME: SUZANNE VALENTINE OPERATIVE REPORT DATE OF : 61 REPORT #: [id number] PHYSICIAN: HUMPHREY HERNANDEZ MD PCP: ALEJANDRINA TOVAR PA-C REPORT IS CONFIDENTIAL AND NOT TO BE RELEASED WITHOUT AUTHORIZATION
== END 2023-01-26 15:30 | disposition home or self-care (01) ==
LOC: DS 07:40
PROVIDERS: ATTEND Urology
PROC: 0T7D8DZ Dilation of Urethra with Intraluminal Device, Via Natural or Artificial Opening Endoscopic (ICD-10-PCS; principal; 2023-01-26 09:30)
DX: N40.1 Benign prostatic hyperplasia with lower urinary tract symptoms (principal); N32.89 Other specified disorders of bladder; I10 Essential (primary) hypertension; E78.5 Hyperlipidemia, unspecified; E11.42 Type 2 diabetes mellitus with diabetic polyneuropathy
CPT/HCPCS: 81001; C1889; J0690; J1815; J2405; J2704; J2765; J3010; J7121

== ENCOUNTER 2023-05-22 08:13 | Day surgery (SDC) | payer OTHER ==
[2023-05-18 09:06] VITALS: BP 121/73
[~2023-05-22] VITALS: Ht 190.5 cm; Wt 168.2 kg
[~2023-05-22 08:13] MED LIST changes: +LEVOFLOXACIN750 MG PO; +OXYCODONE HCL5 MG PO; +OZEMPIC1 MG/0.71 SQ; +PYRIDIUM200 MG PO
[2023-05-22 08:31] VITALS: BP 106/68
--- NOTE | 2023-05-22 11:20 | NUR ---
05/22/23 1120 Jessica Stein 1103- PT ARRIVED TO PACU WITH OPA IN PLACE AND O2, JAW LIFT TO MANAGE AIRWAY. PT UNRESPONSIVE TO STIMULI, MONITORS APPLIED, LR HANGING TO IV IN RIGHT HAND. 1106- PT RESPONSIVE, OPA REMOVED BUT REMAINS ASLEEP. 1109- PT AWAKE BUT DROWSY. PT MOVED TO ROOM AIR. ANSWERING QUESTIONS. CONTINUE TO MONITOR. 1117- PT ASSISTED TO HIGH DUNLAP POSITION, AWAKE OFF AND ON BUT DROWSY. PT ENCOURAGED TO COUGH AND DEEP BREATH. 1119- DALLAS MCCLELLAN AT BEDSIDE TO GIVE STEROIDS FOR AIRWAY SWELLING PER HIS ASSESSMENT.
[2023-05-22 11:46] VITALS: BP 116/71
--- NOTE | 2023-05-23 11:02 | OR ---
[facility] [address] [place], [place] [address] Signed DATE OF OPERATION: 05/22/2023 SURGEON: Dallas Mendoza MD PREOPERATIVE DIAGNOSES: 1. Morbid obesity (BMI 46, weight 370 pounds). 2. Persistent hoarseness and limited cervical dysphagia. 3. Upper GI proven mechanical dysfunction of the swallowing mechanism. POSTOPERATIVE DIAGNOSES: 1. Probable bile reflux gastritis. 2. Poor flap valve without associated esophageal stricture, Russell's epithelium or neoplasm. 3. Normal-appearing vocal cords with redundant soft tissue of hypopharynx and laurent arytenoid area. PROCEDURE: Esophagogastroduodenoscopy with biopsy. ANESTHESIA: Intravenous sedation propofol infusion, Dallas Rojas CRNA INDICATIONS: This morbidly obese 57-year-old white man is a patient currently of SVETLANA Turner, formally Dr. Jaswant Avery. The patient has been evaluated by Dr. Mccollum for a relatively recent phenomenon of "hoarseness." Nasopharyngoscopy was performed which showed no cord lesion. An upper GI swallowing evaluation was undertaken which showed dysmotility problems. He has a history of C4-C6 disk disease and prior cervical operation. In January, he underwent a swallowing evaluation for dysphonia including modified barium swallow confirming impairment with mastication and anterior/posterior transit with premature spillage. There was moderate grade delayed initiation of swallow and reduced laryngeal excursion. Some episodic entry of food into the airway above the vocal cords was noted though also objected appropriately. Pureed food was well tolerated. He underwent a nasopharyngeal evaluation by Dr. Mccollum, ENT specialist, who saw no vocal cord lesion proper. He was recommended for upper endoscopy, and it is to be performed on that basis. He understands the risk of bleeding, infection, and anesthetic complications, wished to Electronically Signed By: DALLAS MENDOZA MD 05/23/23 1102 PATIENT NAME: SUZANNE CAMPBELL OPERATIVE REPORT DATE OF : 61 REPORT #: [id number] PHYSICIAN: DALLAS MENDOZA MD PCP: ALEJANDRINA TOVAR PA-C REPORT IS CONFIDENTIAL AND NOT TO BE RELEASED WITHOUT AUTHORIZATION [facility] [address] [place], [place] [address] Signed proceed. FINDINGS: Indeed the vocal cord proper appeared normal. The soft tissue of the laurent-arytenoid area was full, redundant and somewhat edematous. Esophagus itself had no sign of stricture proximally or distally and certainly no neoplasm or Russell's epithelium. There was no sign of esophagitis actually. Additionally, the flap valve of the stomach was marginal. Stomach mucosa was relatively normal, though he had a fair amount of bilious content within the stomach. The pylorus was normal. There was no sign of gastric outlet obstruction. The duodenum showed what appeared to be inflammatory polypoid tissue. CLOtest was -15 minutes post procedure. PROCEDURE IN DETAIL: The patient was brought to the surgical endoscopy suite and placed in lateral decubitus position given intravenous sedation with propofol infusional technique in the lateral decubitus position left side down. A bite block was placed. Poor pulmonary reserve was observed clinically. An Olympus video upper endoscope was passed in the hypopharynx. Redundancy of hypopharyngeal soft tissue was noted. The vocal cords proper were quite easily noted to be normal. The scope was advanced to the esophagus and passage of the scope down the esophagus was without impediment. Certainly, no stricture or other abnormality. The scope was passed. The stomach was insufflated with air. There was a fair amount of gastric and bilious fluids there. There was no sign of retained food proper. Bilious fluid was suctioned free. The scope was passed to the antrum where there was mild chronic gastritis. Pylorus was normal. Scope was passed into the duodenum. The duodenum had what appeared to be possible duodenal polyps versus inflammatory polyps. Cut Off Operator Scorer one was biopsied. The scope was withdrawn and biopsies taken of the antrum for both RADHA and pathologic testing. Decrease in his oxygen saturations into the low 60s with slow improvement into the low 80s was noted, phenomenon likely related to his sleep apnea. The scope was once again manipulated within the stomach and retroflexed view undertaken showing a poor flap valve itself. The scope was straightened, withdrawn and biopsies then taken of the distal esophagus with close observation of the remaining esophagus. There was no evidence of Russell epithelium, stricture, neoplasm or even obvious esophagitis itself. The scope was then withdrawn and removed. Once again observing the hypopharyngeal soft tissue as redundant and the vocal cords as normal. Scope was removed. The patient taken to the recovery room in good condition. CONCLUDING DIAGNOSIS: He obviously has some bile reflux gastritis. Whether or not this was contributing to a more proximal phenomenon of spasm accounting for dysphagia or other problem is uncertain. Review of his medication currently shows him not to be on any PPI medication Electronically Signed By: DALLAS MENDOZA MD 05/23/23 1102 PATIENT NAME: SUZANNE CAMPBELL OPERATIVE REPORT DATE OF : 61 REPORT #: [id number] PHYSICIAN: DALLAS MENDOZA MD PCP: ALEJANDRINA TOVAR PA-C REPORT IS CONFIDENTIAL AND NOT TO BE RELEASED WITHOUT AUTHORIZATION [place] [id number] Signed or other GI medicine and on that basis, we will prescribe Prilosec 20 mg p.o. b.i.d. as well as Carafate 1 g p.o. q.i.d. on empty stomach. We will see him back in the office in a month to review his pathology reports and his response to treatment. MD RASHMI Lazaro/OSVALDO /[id number] cc: MD Alejandrina Loredo PA Copies: KALYN MCCOLLUM MD ~ Electronically Signed By: DALLAS MENDOZA MD 05/23/23 1102 PATIENT NAME: SUZANNE CAMPBELL OPERATIVE REPORT DATE OF : 61 REPORT #: [id number] PHYSICIAN: DALLAS MENDOZA MD PCP: ALEJANDRINA TOVAR PA-C REPORT IS CONFIDENTIAL AND NOT TO BE RELEASED WITHOUT AUTHORIZATION
--- NOTE | 2023-05-26 20:50 | PATH ---
[facility] [address] [facility] [place] [place] [address] Signed SPECIMEN(S): A DUODENAL BIOPSY SPECIMEN(S): B ANTRUM/PYLORUS BIOPSY SPECIMEN(S): C LOWER ESOPHAGEAL BIOPSY SPECIMEN SOURCE: A. DUODENAL BIOPSY B. ANTRUM/PYLORUS BIOPSY C. LOWER ESOPHAGEAL BIOPSY CLINICAL HISTORY: EGD. Hoarseness; sense of choking; cervical dysphagia FINAL PATHOLOGIC DIAGNOSIS: A. Duodenum, biopsy: - Peptic duodenitis. - No acute inflammation identified. - Negative for dysplasia and malignancy. B. Stomach, antrum/pylorus, biopsy: - Chronic gastritis with no significant acute inflammation identified. - Negative for H. pylori organisms by immunohistochemistry. - Negative for intestinal metaplasia, dysplasia, and malignancy. C. Lower esophagus, biopsy - Stratified squamous esophageal mucosa with slight reflux esophagitis - Eosinophils average less than 1 per high magnification field. - No glandular epithelium identified. - Negative for dysplasia and malignancy. COMMENT: As a part of [facility]' Quality Improvement program, this case has been reviewed by a second pathologist. SDL MICROSCOPIC EXAMINATION: Histologic sections of all submitted blocks are examined by light microscopy. These findings, together with the gross examination, support the pathologic diagnosis. SDL GROSS DESCRIPTION: A. The specimen, labeled and designated "Serge duodenal polyp biopsy," is received in formalin and consists of two pugh soft tissue fragments, ranging PATIENT NAME: SUZANNE CAMPBELL PATHOLOGY DATE OF : 61 REPORT #: [id number] PHYSICIAN: GAETANO PATHOLOGY PCP: ALEJANDRINA TOVAR PA-C REPORT IS CONFIDENTIAL AND NOT TO BE RELEASED WITHOUT AUTHORIZATION [facility] [address] [place], [place] [address] Signed from 0.3-0.5 cm. Entirely submitted in (A1). B. The specimen, labeled and designated "Terjeson, antrum/pylorus biopsy," is received in formalin and consists of two pugh soft tissue fragments, ranging from 0.2-0.3 cm. Entirely submitted in (B1). C. The specimen, labeled and designated "Terjeson, lower esophageal biopsy," is received in formalin and consists of three pugh soft tissue fragments, ranging from 0.2-0.4 cm. Entirely submitted in (C1). VB (under the direct supervision of a pathologist) The Gross Description was prepared using a voice recognition system. The report was reviewed for accuracy; however, sound-alike word errors, addition and/or deletions may occur. If there are any questions about this report, please contact Client Services. ADDITIONAL NOTES: Immunohistochemical and/or in situ hybridization studies were performed on this case with the appropriate positive controls that react as expected. This test was developed and its performance characteristics determined by [facility]. It has not been cleared or approved by the U.S. Food and Drug Administration. The FDA has determined that such clearance or approval is not necessary. This test is used for clinical purposes. It should not be regarded as investigational or for research. [facility] is certified under the Clinical Laboratory Improvement Amendments of 1988 (CLIA) as qualified to perform high complexity clinical laboratory testing. This assay has not been validated for specimens that have been decalcified. PERFORMING LABORATORY: Technical component was performed by [facility], [address] [place] [id number] (CLIA# [id number]). Professional interpretation was performed by [facility], [address] [place] [id number] (CLIA#: [id number]). Diagnostician: Maria Esther Zimmer MD Pathologist Electronically Signed 05/26/2023 Copies: PATIENT NAME: SUZANNE CAMPBELL PATHOLOGY DATE OF : 61 REPORT #: [id number] PHYSICIAN: GAETANO PATHOLOGY PCP: ALEJANDRINA TOVAR PA-C REPORT IS CONFIDENTIAL AND NOT TO BE RELEASED WITHOUT AUTHORIZATION [address] [address] Signed ~ PATIENT NAME: SUZANNE CAMPBELL PATHOLOGY DATE OF : 61 REPORT #: [id number] PHYSICIAN: GAETANO PATHOLOGY PCP: ALEJANDRINA TOVAR PA-C REPORT IS CONFIDENTIAL AND NOT TO BE RELEASED WITHOUT AUTHORIZATION
== END 2023-05-22 11:39 | disposition home or self-care (01) ==
LOC: DS 08:13 → OPS 08:13 → DS 12:00
PROVIDERS: ATTEND Surgery
PROC: 0DB68ZX Excision of Stomach, Via Natural or Artificial Opening Endoscopic, Diagnostic (ICD-10-PCS; principal; 2023-05-22 10:00)
DX: K21.00 Gastro-esophageal reflux disease with esophagitis, without bleeding (principal); K29.80 Duodenitis without bleeding; K29.50 Unspecified chronic gastritis without bleeding; R22.32 Localized swelling, mass and lump, left upper limb; R49.0 Dysphonia; L73.2 Hidradenitis suppurativa; R19.7 Diarrhea, unspecified; M62.08 Separation of muscle (nontraumatic), other site; I10 Essential (primary) hypertension; K40.90 Unilateral inguinal hernia, without obstruction or gangrene, not specified as recurrent; E66.01 Morbid (severe) obesity due to excess calories
CPT/HCPCS: 00731; J1100; J2704; J7121

== ENCOUNTER 2023-09-21 10:48 | Emergency (ER) | payer OTHER, MEDICARE ==
[~2023-09-21] VITALS: Ht 190.5 cm; Wt 167.6 kg
[2023-09-21] MEDS ORDERED: SUCRALFATE1 GM PO (11:33)
[2023-09-21] MEDS ORDERED: FINASTERIDE5 MG PO (11:33)
[2023-09-21] MEDS ORDERED: DOXYCYCLINE HY100 MG PO (12:13)
[2023-09-21 12:24] VITALS: BP 135/85
== END 2023-09-21 12:24 | disposition home or self-care (01) ==
LOC: ED 10:48
DX: N49.2 Inflammatory disorders of scrotum (principal); E11.9 Type 2 diabetes mellitus without complications; I10 Essential (primary) hypertension; Z88.8 Allergy status to other drugs, medicaments and biological substances; Z79.82 Long term (current) use of aspirin; Z79.84 Long term (current) use of oral hypoglycemic drugs; Z79.899 Other long term (current) drug therapy; Z79.890 Hormone replacement therapy
CPT/HCPCS: 99282

== ENCOUNTER → 2024-12-03 | Emergency (ER) | payer MEDICARE, OTHER ==
[~2024-12-03] VITALS: Ht 190.5 cm; Wt 168.3 kg
[~2024-12-03] MED LIST changes: +CEFTRIAXONE/SODIUM CHLORIDE 2 GM/100 ML PIGGYBACK IV ONE; +FINASTERIDE5 MG PO; +HYZAAR 100-251 EACH PO; +METOPROLOL SUCC50 MG PO; +MOUNJARO10 MG/0.5 SQ; +OXYBUTYNIN CHLOR5 M1 PO; +SUCRALFATE1 GM PO; +VITAMIN D21250 MCG PO
--- OUTSIDE RECORDS SUMMARY | 2024-12-03 08:29 | XMS ---
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 ECon VISIT COUNT (12 MO.) 3 [facility] TOTAL 3 NOTE: Visits indicate total known visits. 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
[2024-12-03 09:17] LABS: BASOPHILS 0.5 % (0-2); EOSINOPHILS 3.7 % (0-6); HEMATOCRIT 37.3 % (35.0-50.0); HEMOGLOBIN 13.2 g/dL (12.0-18.0); LYMPHOCYTES 10.8 % (24-44); MCH 34.6 (27-36); MCHC 35.4 g/dl (30-36); MCV 97.7 fl (81-99); MONOCYTES 4.2 % (0-12); NEUTROPHILS 80.8 % (39-80); PLATELET COUNT 152 K/uL (140-440); RBC 3.81 M/ul (4.3-5.7); RDW 16.1 (10.5-15.0)
[2024-12-03 09:18] LABS: ALBUMIN/GLOBULIN RATIO 0.77 (1.1-2.4); ANION GAP 13.1 (7-21); BILIRUBIN, TOTAL 0.8 ng/dL (0.2-1.0); BUN/CREATININE RATIO 8.54 (6.0-28.6); CALCIUM 8.4 mg/dL (8.5-10.1); CREATININE, SERUM 1.17 mg/dL (0.70-1.30); POTASSIUM 4.1 mmol/L (3.5-5.1); PROTEIN, TOTAL 6.9 g/dL (6.4-8.2)
[2024-12-03 10:48] VITALS: BP 130/73
== END ==
LOC: ED 08:22
PROVIDERS: Emergency Medicine
DX: N49.2 Inflammatory disorders of scrotum (principal); E11.9 Type 2 diabetes mellitus without complications; I10 Essential (primary) hypertension; M10.9 Gout, unspecified; G47.30 Sleep apnea, unspecified; Z88.8 Allergy status to other drugs, medicaments and biological substances; Z79.85 Long-term (current) use of injectable non-insulin antidiabetic drugs; Z79.84 Long term (current) use of oral hypoglycemic drugs; Z79.890 Hormone replacement therapy; Z79.899 Other long term (current) drug therapy
CPT/HCPCS: 36415; 76870; 80053; 85025; 96374; 99284-25; J0696

== ENCOUNTER 2025-03-29 06:16 | Emergency (ER) | payer MEDICARE, OTHER ==
[~2025-03-29] VITALS: Ht 190.5 cm; Wt 165.5 kg
[~2025-03-29 06:16] MED LIST changes: -CEFTRIAXONE/SODIUM CHLORIDE 2 GM/100 ML PIGGYBACK IV ONE
--- OUTSIDE RECORDS SUMMARY | 2025-03-29 06:22 | XMS ---
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 ECon VISIT COUNT (12 MO.) 4 [facility] TOTAL 4 NOTE: Visits indicate total known visits. 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
[2025-03-29 08:33] LABS: BASOPHILS 0.6 % (0.2-1.2); EOSINOPHILS 2.2 % (0.8-7.0); HEMATOCRIT 41.5 % (40.1-51.0); HEMOGLOBIN 14.4 g/dL (13.7-17.5); LYMPHOCYTES 8.1 % (21.8-53.1); MCH 33.4 PG (25.7-32.2); MCHC 34.7 g/dL (32.3-36.5); MCV 96.3 fL (79.0-92.2); MONOCYTES 3.8 % (5.3-12.2); NEUTROPHILS 84.3 % (34.0-67.9); PLATELET COUNT 100 K/uL (163-337); RBC 4.31 M/uL (4.63-6.08)
[2025-03-29 08:43] LABS: INR 1.05 (0.80-1.30); PROTIME 13.3 Sec (11.2-14.2)
[2025-03-29 08:48] LABS: ALBUMIN 3.4 g/dL (3.4-5.0); ALBUMIN/GLOBULIN RATIO 0.97 (1.1-2.4); ANION GAP 11.3 (7-21); BILIRUBIN, TOTAL 1.6 mg/dL (0.2-1.0); CALCIUM 8.7 mg/dL (8.5-10.1); CREATININE, SERUM 1.11 mg/dL (0.70-1.30); POTASSIUM 4.3 mmol/L (3.5-5.1); PROTEIN, TOTAL 6.9 g/dL (6.4-8.2)
[2025-03-29] MEDS ORDERED: ondansetron HCL 4 MG/2 ML VIAL IV ONE (10:15)
[2025-03-29] MEDS ORDERED: LORazepam 2 MG/ML VIAL IV ONE (10:15)
[2025-03-29] MEDS ORDERED: LACTATED RINGER'S 1,000 ML IV SCH (12:15)
[2025-03-29 12:51] VITALS: BP 124/75
== END 2025-03-29 12:44 | disposition short-term general hospital (02) ==
LOC: ED 06:16
PROVIDERS: Emergency Medicine
DX: S22.079A Unspecified fracture of T9-T10 vertebra, initial encounter for closed fracture (principal); E11.9 Type 2 diabetes mellitus without complications; I10 Essential (primary) hypertension; G47.30 Sleep apnea, unspecified; W01.0XXA Fall on same level from slipping, tripping and stumbling without subsequent striking against object, initial encounter; Z79.899 Other long term (current) drug therapy; Z79.84 Long term (current) use of oral hypoglycemic drugs; Z88.8 Allergy status to other drugs, medicaments and biological substances
CPT/HCPCS: 36415; 70450; 71250; 72125; 72128; 72131; 80053; 85025; 85610; 96374; 99285-25; G0480; J2405; J7121